=== PATIENT | male | born 1955 ===

== ENCOUNTER → 2020-04-17 | Outpatient (CLI) | payer MEDICARE, OTHER | END | disposition home or self-care (01) | LOC: LAB EV 19:34 → LAB SHORT 19:34 | DX: R05 Cough (principal); Z20.828 Contact with and (suspected) exposure to other viral communicable diseases | CPT/HCPCS: U0003 ==

== ENCOUNTER → 2020-06-27 | Outpatient (CLI) | payer MEDICARE, OTHER | END | disposition home or self-care (01) | LOC: LAB SHORT 08:21 → PLD 08:21 | DX: D04.21 Carcinoma in situ of skin of right ear and external auricular canal (principal) | CPT/HCPCS: 88305 ==

== ENCOUNTER 2020-09-02 07:56 | Day surgery (SDC) | payer MEDICARE, OTHER ==
[~2020-09-02] VITALS: Ht 183 cm; Wt 113.3 kg
[~2020-09-02 07:56] MED LIST: ACET500 PO; ALBU90OI INH; ALLO300 PO; ATOR20 PO; DULO30 PO; EUTHYROX88 MC1 PO; LOSARTAN-HCTZ1 EACH PO; MONT10T PO; OMEP20ER PO; SYMBICORT 160-4.6 GM INH
--- NOTE | 2020-09-02 08:57 | NUR ---
Ambulatory in Day Surgery History, Chart, Medications and Allergies reviewed before start of procedure.Patient States Post-Procedure ride home has been arranged. Patient confirms NPO status and agrees with scheduled surgery.ENDO2 Lungs clear T/O to Auscultation.
--- NOTE | 2020-09-02 09:30 | NUR ---
09/02/20 0930 Torri Izaguirre History, Chart, Medications and Allergies reviewed before start of procedure. Patient confirms NPO status and agrees with scheduled surgery. PATIENT DETERMINED TO BE ASA APPROPRIATE FOR MODERATE SEDATION PRIOR TO START OF PROCEDURE BY DR. GARCIA. MONITOR INTACT WITH CONTINUOUS PULSE OXIMETRY AND INTERMITTENT BP.
--- NOTE | 2020-09-02 11:07 | NUR ---
Discharge instructions reviewed with patient. Patient verbalizes understanding. Copy given to patient to take home. Discharged via wheelchair to private car for ride home.
== END 2020-09-02 23:48 | disposition home or self-care (01) ==
LOC: ORSCMMR 07:56 → ORD 09:00 → ORSCMMR 09:00
PROVIDERS: Internal Medicine Gastroenterology
PROC: 0DBH8ZX Excision of Cecum, Via Natural or Artificial Opening Endoscopic, Diagnostic (ICD-10-PCS; principal; 2020-09-02 09:00)
PROC: 0DBK8ZX Excision of Ascending Colon, Via Natural or Artificial Opening Endoscopic, Diagnostic (ICD-10-PCS; principal; 2020-09-02 09:00)
PROC: 0DBN8ZX Excision of Sigmoid Colon, Via Natural or Artificial Opening Endoscopic, Diagnostic (ICD-10-PCS; principal; 2020-09-02 09:00)
DX: Z12.11 Encounter for screening for malignant neoplasm of colon (principal); Z86.010 Personal history of colon polyps; Z80.0 Family history of malignant neoplasm of digestive organs; D12.2 Benign neoplasm of ascending colon; D12.0 Benign neoplasm of cecum; K63.5 Polyp of colon; J44.9 Chronic obstructive pulmonary disease, unspecified; E03.9 Hypothyroidism, unspecified; I10 Essential (primary) hypertension; E78.00 Pure hypercholesterolemia, unspecified; Z79.899 Other long term (current) drug therapy
CPT/HCPCS: 88305; J2250; J3010; J7120

== ENCOUNTER 2021-12-29 13:29 | Day surgery (SDC) | payer MEDICARE, OTHER ==
[~2021-12-29] VITALS: Ht 182.9 cm; Wt 112.5 kg
[2021-12-29] MEDS ORDERED: LOSA50 (14:14)
[2021-12-29] MEDS ORDERED: LOSA50 PO (14:15)
[2021-12-29] MEDS ORDERED: META800 PO (14:16)
--- NOTE | 2021-12-29 15:37 | NUR ---
12/29/21 1537 Soniya Segovia 0.15ML OF EPI 1MG/ML ADDED TO 30ML OF BUPIVICAINE 0.5% FOR A SOLUTION OF BUPIVICAINE 0.5% WITH EPI, 1:200,000.
--- NOTE | 2021-12-29 17:44 | NUR ---
12/29/211743 ISABELLE NIXONL 25MG PO GIVEN FOR ITCHING. V.O. FROM DR. ESPOSITO. CAME INTO ROOM TO CHECK ON PT BEFORE MEDICINE WAS GIVEN.
== END 2021-12-29 17:45 | disposition home or self-care (01) ==
LOC: ORSCSDS 13:29
PROVIDERS: Podiatrist Foot & Ankle Surgery
PROC: 0QBM0ZZ Excision of Left Tarsal, Open Approach (ICD-10-PCS; principal; 2021-12-29 14:45)
PROC: 0L8P0ZZ Division of Left Lower Leg Tendon, Open Approach (ICD-10-PCS; principal; 2021-12-29 14:45)
DX: M76.62 Achilles tendinitis, left leg (principal); M24.572 Contracture, left ankle; I10 Essential (primary) hypertension; E78.5 Hyperlipidemia, unspecified; J45.909 Unspecified asthma, uncomplicated; E03.9 Hypothyroidism, unspecified; N18.9 Chronic kidney disease, unspecified; K21.9 Gastro-esophageal reflux disease without esophagitis; Z79.899 Other long term (current) drug therapy; Z85.46 Personal history of malignant neoplasm of prostate
CPT/HCPCS: A9270; C1713; J0171; J1100; J2250; J2405; J2704; J3010; J3370; J7050; J7120